=== PATIENT | female | born 1985 | race Two or more races ===

== ENCOUNTER → 2025-08-31 | Outpatient (CLI) | payer OTHER | LOC: M RAD 16:11 | PROVIDERS: ATTEND Nurse Practitioner Family | DX: C73 Malignant neoplasm of thyroid gland (principal) ==

== ENCOUNTER → 2025-10-07 | Outpatient (CLI) | payer OTHER ==
[~2025-10-07] MED LIST: ISOVUE-370 76% 100 ML VIAL As Ordered ONE
== END ==
LOC: M RAD 15:56
PROVIDERS: ATTEND Nurse Practitioner Primary Care
DX: R19.00 Intra-abdominal and pelvic swelling, mass and lump, unspecified site (principal)